=== PATIENT | female | born 1980 | race Caucasian/White ===

== ENCOUNTER 2017-06-09 07:52 | Emergency (ER) | payer MEDICARE, MEDICAID ==
--- NOTE | 2017-06-09 08:23 | ERNOTE ---
Abdominal HPI - General Time Seen by Provider: 06/09/17 08:10 Source: patient Exam Limitations: no limitations - Immun/Allergies/Home Medications Allergies/Adverse Reactions: Allergies quetiapine [From Seroquel] Adverse Reaction (Verified 06/09/17 08:19) Other seizures Home Medications: HOME MEDICATIONS Amitriptyline HCl [Elavil] 25 mg PO HS 06/09/17 [Last Taken Unknown] Desvenlafaxine Succinate [Pristiq] 50 mg PO DAILY 06/09/17 [Last Taken Unknown] Dicyclomine HCl [Bentyl] 20 mg PO QID PRN #40 tab 06/09/17 [Last Taken Unknown] Levonorgestrel [Mirena] 1 each IY 06/09/17 [Last Taken Unknown] Topiramate [Topamax] 100 mg PO DAILY 06/09/17 [Last Taken Unknown] - History of Present Illness Narrative: Patient was seen in [place] [facility] last night for migraines, given morphine with good relieve. She was feeling well this morning and while driving to work had a sudden severe sharp lower abdominal pain that almost doubled her over. The pain has lessened and moved to the upper abdomen, achy 6/10, nausea, no vomiting. Patient had a cholecystectomy. Date (Duration): 06/09/17 Time (Timing): 07:30 Timing: constant Quality: moderate, aching Activities at Onset: none Associated Symptoms: Present: nausea. Absent: headache, chest pain, diarrhea- gross blood, vomiting, shortness of breath Prior Treatment: Present: recently seen. Absent: currently on antibiotics Review of Systems - Review of Systems Constitutional: Absent: recent illness, fever EYE: Absent: double vision ENT: Absent: nose congestion, sore throat Respiratory: Absent: shortness of breath Cardiology: Absent: chest pain Gastrointestinal/Abdominal: Present: See HPI, nausea, abdominal pain. Absent: vomiting, diarrhea Genitourinary: Present: no symptoms reported Musculoskeletal: Absent: back pain Neurological: Present: no symptoms reported - Patient's Past Medical History Patient History - Medical: Depression, Migraines Patient History - Cardiac/Respiratory: No pertinent hx Patient History - Cancer: No Hx of Cancer Patient History - Surgical Procedures: Cholecystectomy, Orthopedic Patient History - Other: None - Social History Living Situations: home Smoking Status: Never smoker Alcohol Use: rarely Drug Use: none - Immunizations Immunizations Up to Date: Yes Physical Exam - Physical Exam General Appearance: Present: wd/wn, alert, no apparent distress Respiratory: Present: no respiratory distress, normal breath sounds, chest nontender, lungs clear Cardiovascular/Chest: Present: regular rate, rhythm, no murmur Gastrointestinal/Abdominal: Present: normal bowel sounds, nondistended, soft, tenderness - mild tenderness mainly in upper abdomen Neurological Exam: Present: alert, oriented, normal mood/affect Skin Exam: Present: normal color, warm/dry ED Progress - Results and Orders Patient's Lab Results:: I have reviewed the patient's lab results. - Vital Signs Patient's Vital Signs:: I have reviewed the patient's vital signs. - X-Ray X-Ray #1 X-Ray: abdomen - possible colitis Interpretation: Reviewed by me - Progress/Reassessment Progress Note-Subjective: 06/09/17 08:28 pain is starting to subside 06/09/17 09:39 pain is moving to different areas of abdomen discussed test results with patient Departure Clinical Impression: Gastroenteritis - Departure Disposition: Home self-care Condition: Good Instructions: Viral Gastroenteritis, Adult, [id number] Additional Instructions: try over the counter probiotics like culturelle Referrals: Ash Payne [employer] [Primary Care Provider] - Prescriptions: Dicyclomine HCl [Bentyl] 20 mg PO QID PRN #40 tab PRN Reason: Pain
[2017-06-09 08:42] LABS: Urine Bilirubin Negative (NEGATIVE); Urine Ketone Negative (NEGATIVE); Urine Nitrite Negative (NEGATIVE); Urine Protein Negative (NEGATIVE); Urine Specific Gravity 1.025 SP.GR. (1.005-1.010); Urine Urobilinogen Normal (NORMAL)
[2017-06-09 08:43] LABS: Hematocrit 41.3 % (37.0-47.0); Hemoglobin 14.2 gm/dL (12.5-16.0); Mean Cell Volume 88.8 fl (78-100); Mean Corpuscular Hemoglobin 30.5 pg (27-31); Mean Corpuscular Hgb Conc 34.4 g/dl (32-36); Mean Platelet Volume 10.9 fl (6.0-9.5); Neutrophil # 4.9 K/mm3 (1.3-6.0); Neutrophil % 65.6 % (42-75.0); Platelet Count 204 K/mm3 (150-450); Red Blood Count 4.65 M/mm3 (4.2-5.4); Red Cell Distribution Width 12.8 % (11.5-14.0); White Blood Count 7.5 K/mm3 (4.0-10.5)
[2017-06-09 08:48] LABS: Urine Appearance Clear; Urine Bacteria 1+; Urine Blood 5 /ul (NEGATIVE); Urine Color Yellow; Urine RBC 0-5 /hpf (0-5); Urine WBC None Seen /hpf (0-5)
[2017-06-09 08:54] LABS: Albumin * 4.1 gm/dl (3.4-5.0); Anion Gap 12.1 mmol/L (6.8-13.8); Bilirubin, Total 0.6 mg/dL (0.0-1.1); Ca. Corrected For Albumin 8.2 mg/dL (8.4-10.2); Calcium * 8.6 mg/dL (7.9-10.9); Carbon Dioxide 25.4 mmol/L (24-32.6); Potassium 3.5 mmol/L (3.4-4.6); Total Protein 7.7 gm/dL (6.2-8.2)
[2017-06-09 09:37] VITALS: BP 134/77
[2017-06-09] MEDS ORDERED: DICYCLOMINE HCL 20 MG TABLET PO ONE (09:40)
[2017-06-09] MEDS ORDERED: DICYCLOMINE HCL 20 MG TABLET ONE (09:43)
== END 2017-06-09 09:47 | disposition home or self-care (01) ==
LOC: ER 07:52
DX: K52.9 Noninfective gastroenteritis and colitis, unspecified (principal); F32.9 Major depressive disorder, single episode, unspecified; G43.909 Migraine, unspecified, not intractable, without status migrainosus